=== PATIENT | female | born 1995 | race Asian ===

== ENCOUNTER 2018-04-09 00:21 | Emergency (ER) | payer OTHER ==
[2018-04-09] MEDS ORDERED: NS 1,000 ML IV ONE (00:28)
--- NOTE | 2018-04-09 00:33 | CPEKG ---
Heart Rate: 100 RR Interval: 600 P-R Interval: 152 QRSD Interval: 82 QT Interval: 352 QTC Interval: 454 P [place]: 45 QRS [place]: 89 T Wave [place]: 55 EKG Severity - BORDERLINE ECG - EKG Impression: SINUS TACHYCARDIA EKG Impression: INFERIOR Q WAVES, PROBABLY NORMAL VARIATION Electronically Signed By: Obed Hernandez 09-Apr-2018 06:26:52
--- NOTE | 2018-04-09 00:34 | EDPHY ---
H & P Time Seen by Provider: 04/09/18 00:25 HPI/ROS: Chief Complaint: Syncope HPI: 22-year-old woman visiting from [place] had a syncopal episode tonight. Patient states she is out [place] in this evening. She only drank a couple cups of water. She when out had a beer. She stood up felt lightheaded and had a witnessed syncopal episode. She did not fall or hit her head. She woke up right away. Within 20-30 seconds she tried to stand up again and passed out once more. Again lowered to the ground. Does not have a history of syncope in the past. No chest pain or palpitations. No leg pain or swelling. She has been here from [place] for about the last 3 weeks. She did go [place] in today is complaining of some pain in her left foot. Last menstrual. Was 4 days ago normal. Does not believe she is . Does not have a family history of sudden cardiac . ROS: 10 point Review of Systems is negative except as noted in the HPI. PMH: Denies Social History: No smoking, occasional alcohol, no recreational drug use Family History: non-contributory Physical Exam: Gen: Awake, Alert, No Distress HEENT: Scalp: There is a 1 cm laceration behind her right ear. Is not actively bleeding. Nose: no rhinorrhea Eyes: PERRLA, EOMI Mouth: Moist mucosa Neck: Supple, no JVD Chest: nontender, lungs clear to auscultation Heart: S1, S2 normal, no murmur Abd: Soft, non-tender, no guarding Back: no CVA tenderness, no midline tenderness Ext: no edema, non-tender Skin: no rash Neuro: CN II-XII intact, Sensation grossly intact, Strength 5/5 in bilateral upper and lower extremities Constitutional: Initial Vital Signs Temperature (C) 36.7 C 04/09/18 00:36 Heart Rate 105 H 04/09/18 00:36 Respiratory Rate 16 04/09/18 00:36 Blood Pressure 116/82 H 04/09/18 00:36 O2 Sat (%) 98 04/09/18 00:36 O2 Delivery Mode Room Air Allergies/Adverse Reactions: No Known Allergies Allergy (Unverified 04/09/18 00:29) Home Medications: Medication Instructions Recorded NK [No Known Home Meds] 04/09/18 Medical Decision Making - Diagnostics EKG Interpretation: ECG time 12:29 a.m., sinus rhythm with a rate of 100, normal axis, normal intervals, no acute ST or T-wave changes. Impression: Normal ECG. Procedures: Procedure: Laceration repair with skin glue. The 1 cm laceration on the right scalp. The wound was cleaned and explored to its base with a gloved finger. There were no deep structures involved. The wound was repaired with tissue adhesive. The procedure was performed by myself. ED Course/Re-evaluation: 22-year-old woman with syncopal episode likely secondary to dehydration. She has normal ECG. She is not . She has a small laceration above her right ear otherwise normal exam. She has been hydrated with a L of normal saline here. Will discharge with follow-up as an outpatient. - Data Points Laboratory Results: 04/09/18 00:21 Beta HCG, Qual NEGATIVE Medications Given: Discontinued Medications Sodium Chloride (Ns) 1,000 mls @ 0 mls/hr IV EDNOW ONE; Wide Open PRN Reason: Protocol Stop: 04/09/18 00:29 Last Admin: 04/09/18 00:31 Dose: 1,000 mls Departure - Departure Disposition: Home, Routine, Self-Care Clinical Impression: Syncope, Scalp laceration, Dehydration Condition: Good Instructions: Syncope (ED), Laceration (ED), Skin Adhesive Care (ED), Dehydration (ED) Additional Instructions: Make sure you drink at least 8, 8 oz glasses of water a day. Follow up with primary care physician when you return home to [place]. Return to the emergency department for any further episodes of fainting, chest pain, shortness of breath, headache, or any other concerns. Referrals: Patient,NotPresent [Unknown] - As per Instructions
[2018-04-09] MEDS ORDERED: SKIN ADHESIVE (DERMABOND) 1 EACH TP ONE (00:42)
[2018-04-09 01:54] VITALS: BP 107/72
== END 2018-04-09 01:53 | disposition home or self-care (01) ==
PROC: 0HQ0XZZ Repair Scalp Skin, External Approach (ICD-10-PCS; principal; 2018-04-09)
DX: S01.01XA Laceration without foreign body of scalp, initial encounter (principal); R55 Syncope and collapse; E86.9 Volume depletion, unspecified; W18.39XA Other fall on same level, initial encounter; Y99.8 Other external cause status; Y93.89 Activity, other specified